=== PATIENT | female | born 2000 | race African-American/Black ===

== ENCOUNTER 2022-02-16 23:42 | Emergency (ER) | payer MEDICAID ==
[~2022-02-16] VITALS: Ht 167.6 cm; Wt 69.0 kg
[2022-02-17] MEDS ORDERED: MINE50OI TP (01:48)
[2022-02-17] MEDS ORDERED: HC A30CR10 RC (01:48)
[2022-02-17 01:51] VITALS: BP 108/60
== END 2022-02-17 01:51 | disposition home or self-care (01) ==
LOC: ER 23:42
DX: L23.9 Allergic contact dermatitis, unspecified cause (principal)
CPT/HCPCS: 99282

== ENCOUNTER 2022-03-13 13:51 | Emergency (ER) | payer MEDICAID ==
[~2022-03-13 13:51] MED LIST: HC A30CR10 RC; MINE50OI TP
== END 2022-03-13 14:43 | disposition left against medical advice (07) ==
LOC: ER 14:09
DX: Z53.21 Procedure and treatment not carried out due to patient leaving prior to being seen by health care provider (principal)

== ENCOUNTER 2024-03-25 17:26 | Emergency (ER) | payer SELFPAY ==
[~2024-03-25] VITALS: Ht 165.1 cm; Wt 55.0 kg
[2024-03-25 17:32] VITALS: TEMP 98.2; O2SAT 100
[2024-03-25] MEDS: ONDANSETRON 4MG ODT PO ONE (18:02)
[2024-03-25] MEDS: ONDANSETRON HCL 4MG/2ML INJ IV ONE (18:09)
[2024-03-25] MEDS: SODIUM CHLORIDE 0.9% 1,000 ML IV ONE (18:09)
[2024-03-25 18:11] LABS: DIFFERENTIAL COMMENT 1; HEMATOCRIT. 38.2 % (36.0-48.0); HEMOGLOBIN. 12.4 g/dL (12.0-16.0); MEAN CORPUSCULAR HEMOGLOBIN 22.4 pg (28.0-32.0); MEAN CORPUSCULAR HGB CONC 32.4 g/dL (31.0-37.0); MEAN CORPUSCULAR VOLUME 69.1 fL (81.0-99.0); MEAN PLATELET VOLUME 9.7 fl (7.4-10.4); PLATELET 195 x1000/uL (130-400); RED BLOOD CELL COUNT 5.53 mill/uL (4.2-5.4); RED CELL DISTRIBUTION WIDTH 14.2 % (11.6-14.6); WHITE BLOOD COUNT 9.7 x1000/uL (4.5-11.0)
[2024-03-25 18:17] LABS: CHLORIDE 102 mEq/L (98-107); POTASSIUM 3.1 mEq/L (3.5-5.1); SODIUM 136 mEq/L (136-145)
[2024-03-25 18:18] LABS: CARBON DIOXIDE 20 mEq/L (21-32)
[2024-03-25 18:19] LABS: CALCIUM 10.5 mg/dL (8.7-10.4)
[2024-03-25 18:23] LABS: CREATININE 0.7 mg/dL (0.6-1.0); GLUCOSE 88 mg/dL (70-105); UREA NITROGEN BLOOD 7 mg/dL (9-23)
[2024-03-25 18:28] LABS: HYPOCHROMASIA 1+; MICROCYTOSIS 3+; PLATELET ESTIMATE NORMAL
[2024-03-25 18:30] LABS: BETA HYDROXYBUTYRATE 1.3 mMol/L (0.0-0.3)
[2024-03-25 18:41] LABS: B-HCG QUANTITATIVE 39938 mIU/mL (<3)
[2024-03-25] MEDS ORDERED: ONDA4TAB11 PO (20:11)
[2024-03-25] MEDS: KCL 10MEQ/50ML PREMIX 50 ML IV ONE (21:17)
[2024-03-25] MEDS: PYRIDOXINE 100 MG/ML 1ML IV ONE (21:18)
[2024-03-25 22:38] VITALS: BP 121/51; PULSE 63; RESP 16
== END 2024-03-25 22:42 | disposition home or self-care (01) ==
LOC: ER 17:26
DX: O21.0 Mild hyperemesis gravidarum (principal); E87.6 Hypokalemia; Z3A.01 Less than 8 weeks gestation of pregnancy
CPT/HCPCS: 80048; 82010; 84702; 85025; 86850; 86900; 86901; 36415; 76801; 76817; 96361; 96365; 96375; 99285; Q0162; J2405; J3480; J3415; J7030; Z7610 ×2